=== PATIENT | female | born 1990 | race Two or more races ===

== ENCOUNTER 2018-02-18 00:01 | Emergency (ER) | payer OTHER ==
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
[2018-02-18] MEDS ORDERED: NS 1,000 ML IV ONE ×3 (00:15→04:19)
[2018-02-18] MEDS ORDERED: fentaNYL 100 MCG/2 ML INJ IVP ONE (00:15)
[2018-02-18] MEDS ORDERED: IOPAMIDOL (ISOVUE-300) 100 ML BTL ONE (00:31)
[2018-02-18 01:01] LABS: PLATELET COUNT 262 10^3/uL (150-400)
[2018-02-18] MEDS ORDERED: INSULIN REGULAR HUMAN 100 UNIT/ML UNIT SC ONE (01:12)
[2018-02-18] MEDS ORDERED: ACETAMINOPHEN 500 MG TAB PO ONE (02:52)
[2018-02-18 05:18] VITALS: BP 105/65
== END 2018-02-18 05:24 | disposition home or self-care (01) ==
LOC: EDUNIT# → EDBD
DX: S29.9XXA Unspecified injury of thorax, initial encounter (principal); J45.909 Unspecified asthma, uncomplicated; E11.65 Type 2 diabetes mellitus with hyperglycemia; Z79.4 Long term (current) use of insulin; V43.52XA Car driver injured in collision with other type car in traffic accident, initial encounter; Y92.410 Unspecified street and highway as the place of occurrence of the external cause; Y99.8 Other external cause status; Y93.89 Activity, other specified
CPT/HCPCS: 82435-PO; 82565-PO; 82947-PO; 84132-PO; 84295-PO; 84520-PO; 85014-PO; 96374; J1815; Q9967